=== PATIENT | female | born 1990 | race Caucasian/White ===

== ENCOUNTER 2021-10-09 07:52 | Outpatient (CLI) | payer OTHER ==
[~2021-10-09 07:52] MED LIST: PRENATABS RX TA1 TAB PO
== END 2021-10-09 08:48 | disposition home or self-care (01) ==
LOC: PRENATAL 07:52
PROVIDERS: ATTEND Obstetrics & Gynecology Maternal & Fetal Medicine
DX: O35.0XX0 Maternal care for (suspected) central nervous system malformation in fetus, not applicable or unspecified (principal); O35.3XX0 Maternal care for (suspected) damage to fetus from viral disease in mother, not applicable or unspecified; O34.219 Maternal care for unspecified type scar from previous cesarean delivery; Z3A.22 22 weeks gestation of pregnancy